=== PATIENT | male | born 1970 | race African-American/Black ===

== ENCOUNTER → 2018-10-25 | Outpatient (CLI) | payer OTHER ==
[2018-10-27 11:46] LABS: QUANTIFERON TB Ag1-NIL 0.48 (0.000-0.000)
== END | disposition home or self-care (01) ==
LOC: LAB 15:36
PROVIDERS: ATTEND Family Medicine
DX: Z11.1 Encounter for screening for respiratory tuberculosis (principal)
CPT/HCPCS: 36415; 86480